=== PATIENT | male | born 1985 | race Caucasian/White ===

== ENCOUNTER 2020-02-21 23:20 | Emergency (ER) | payer MEDICAID ==
[~2020-02-21] VITALS: Ht 167.6 cm; Wt 64.9 kg
[2020-02-21 23:27] VITALS: Ht 167.6 cm; Wt 64.9 kg
[2020-02-22 01:00] VITALS: BP 128/77
== END 2020-02-22 01:00 | disposition home or self-care (01) ==
LOC: ED 23:20
DX: L02.414 Cutaneous abscess of left upper limb (principal); Z88.8 Allergy status to other drugs, medicaments and biological substances
CPT/HCPCS: J1885

== ENCOUNTER 2020-02-22 18:08 | Emergency (ER) | payer MEDICAID ==
[~2020-02-22] VITALS: Ht 167.6 cm; Wt 64.9 kg
[2020-02-22 18:45] VITALS: BP 140/87; Ht 167.6 cm; Wt 64.9 kg
== END 2020-02-22 22:23 | disposition left against medical advice (07) ==
LOC: ED 18:08
DX: Z53.21 Procedure and treatment not carried out due to patient leaving prior to being seen by health care provider (principal)

== ENCOUNTER 2020-03-02 19:19 | Emergency (ER) | payer MEDICAID ==
[~2020-03-02] VITALS: Ht 167.6 cm; Wt 68.5 kg
[2020-03-02 19:37] VITALS: BP 125/83; Ht 167.6 cm; Wt 68.5 kg
[2020-03-02 20:12] LABS: PLATELET COUNT 343 x10^3mcL (130-400)
[2020-03-02 20:16] LABS: RED CELL DISTRIBUTION WIDTH 17.4 % (11.5-14.5)
[2020-03-02 20:22] LABS: CALCIUM 8.7 mg/dL (8.5-10.1); CARBON DIOXIDE 32.1 mmol/L (21-32); CHLORIDE SERUM 103 mmol/L (98-107); GFR1 > 60 mL/min; GLUCOSE SERUM 104 mg/dL (74-106); SODIUM SERUM 143 mmol/L (136-145)
[2020-03-02 20:26] LABS: ALKALINE PHOSPHATASE 102 U/L (46-116); ALT/SGPT 24 U/L (16-63); AST/SGOT 12 U/L (15-37); BILIRUBIN TOTAL 0.21 mg/dL (0.20-1.00); LIPASE 129 IU/L (73-393); TOTAL PROTEIN, SERUM 7.4 g/dL (6.4-8.2)
[2020-03-02 20:28] LABS: ALBUMIN 3.3 g/dL (3.4-5.0)
== END 2020-03-02 21:16 | disposition home or self-care (01) ==
LOC: ED 19:19
PROVIDERS: Emergency Medicine
DX: K29.70 Gastritis, unspecified, without bleeding (principal); Z88.8 Allergy status to other drugs, medicaments and biological substances
CPT/HCPCS: Q0162